=== PATIENT | male | born 1980 | race Caucasian/White ===

== ENCOUNTER 2022-03-12 07:58 | Outpatient (CLI) | payer BC, SELFPAY | END 2022-03-12 07:59 | disposition home or self-care (01) | LOC: NFLDREF 08:00 | PROVIDERS: Visit Provider Family Medicine | DX: E07.9 Disorder of thyroid, unspecified (principal) | CPT/HCPCS: 84443 ==

== ENCOUNTER 2022-03-27 12:54 | Outpatient (CLI) | payer BC, SELFPAY ==
--- NOTE | 2022-03-27 13:45 | CRLHL7_ITS ---
For Patients: As a result of the Century Cures Act, medical imaging exams and procedure reports are released immediately into your electronic medical record. You may view this report before your referring provider. If you have questions, please contact your health care provider. DATE: 03/27/2022. CLINICAL HISTORY: Neck pain. TECHNIQUE: Multiplanar, multi-sequence MRI examination of the cervical spine was performed. COMPARISON: None available. FINDINGS: No acute fracture, traumatic malalignment, or acute ligamentous injury of the cervical spine. Vertebral body heights are maintained without evidence of compression deformity. The craniocervical junction is within normal limits. The cervical cord is normal in signal and morphology. Anatomic alignment of the cervical spine. C2-3: No significant spinal canal stenosis or foraminal narrowing. C3-4: No significant spinal canal stenosis or foraminal narrowing. C4-5: No significant spinal canal stenosis or foraminal narrowing. C5-6: Shallow right central disc extrusion, which extends slightly caudal to the superior endplate C6, with indentation of the ventral thecal sac. No significant spinal canal stenosis or foraminal narrowing. C6-7: No significant spinal canal stenosis or foraminal narrowing. C7-T1: No significant spinal canal stenosis or foraminal narrowing. IMPRESSION: 1. Anatomic alignment of the cervical spine. 2. At C5-6, shallow right central disc extrusion without significant spinal canal stenosis. 3. No significant spinal canal stenosis or foraminal narrowing throughout the cervical spine. Dictated by Martinez Veloz MD @ 03/27/2022 9:31:40 PM (Electronically Signed)
== END 2022-03-27 12:55 | disposition home or self-care (01) ==
DX: M54.2 Cervicalgia (principal)
CPT/HCPCS: 72141

== ENCOUNTER 2023-04-18 14:07 | Outpatient (CLI) | payer OTHER, SELFPAY | END 2023-04-18 14:08 | disposition home or self-care (01) | PROVIDERS: PCP Family Medicine; Visit Provider Family Medicine | DX: Z00.00 Encounter for general adult medical examination without abnormal findings (principal); E03.9 Hypothyroidism, unspecified; E66.01 Morbid (severe) obesity due to excess calories; Z13.6 Encounter for screening for cardiovascular disorders; Z31.41 Encounter for fertility testing | CPT/HCPCS: 80053; 80061; 84403; 84443; 89322 ==